=== PATIENT | female | born 2000 | race Caucasian/White ===

== ENCOUNTER 2021-09-03 09:00 | Emergency (ER) | payer OTHER ==
[~2021-09-03] VITALS: Ht 154.9 cm; Wt 94.8 kg
[2021-09-03 09:03] VITALS: BP 136/78
--- NOTE | 2021-09-03 09:11 | NUR ---
PT AMBULATED TO ER BED 9 WITH A STEADY GAIT.
[2021-09-03] MEDS ORDERED: KETOROLAC 30 MG/ML VIAL IM ONE (09:20)
[2021-09-03] MEDS ORDERED: CYCLOBENZAPRINE 10 MG TAB PO ONE (09:20)
[2021-09-03] MEDS ORDERED: CYCL-711 PO ×2 (10:14→11:18)
[2021-09-03] MEDS ORDERED: NITR100C7 PO ×2 (10:14→11:18)
[2021-09-03] MEDS ORDERED: CRUSHER, PILL MC ONE (10:14)
[2021-09-03] MEDS ORDERED: LID5T TP ×2 (10:14→11:18)
[2021-09-03] MEDS ORDERED: DICL100G5 TP ×2 (10:15→11:18)
[2021-09-03] MEDS ORDERED: IBUP-2213 PO ×2 (10:15→11:18)
--- NOTE | 2021-09-03 10:55 | NUR ---
Patient discharged with v/s stable. Written and verbal after care instructions given and explained. Patient alert, oriented and verbalized understanding of instructions. Ambulatory with steady gait. All questions addressed prior to discharge. ID band removed. Patient advised to follow up with PMD. Rx of flexeril, ibuprofen, lidocaine patch, doclofenac sodium, and macrobid given. Patient educated on indication of medication including possible reaction and side effects. Opportunity to ask questions provided and answered.
== END 2021-09-03 10:55 | disposition home or self-care (01) ==
LOC: MED 09:00
DX: S39.012A Strain of muscle, fascia and tendon of lower back, initial encounter (principal); N39.0 Urinary tract infection, site not specified; X58.XXXA Exposure to other specified factors, initial encounter; Y93.89 Activity, other specified; Y92.89 Other specified places as the place of occurrence of the external cause; Y99.8 Other external cause status
CPT/HCPCS: 81002; 81025; 96372; 99283; J1885

== ENCOUNTER 2023-01-03 06:38 | Emergency (ER) | payer OTHER ==
[~2023-01-03] VITALS: Ht 154.9 cm; Wt 92.5 kg
[~2023-01-03 06:38] MED LIST: CYCL-711 PO; DICL100G5 TP; IBUP-2213 PO; LID5T TP; NITR100C7 PO
[2023-01-03 06:40] VITALS: BP 129/82; PULSE 89; RESP 19; TEMP 97.2; O2SAT 100
[2023-01-03 07:45] VITALS: O2SAT 89
[2023-01-03] MEDS: BUPIVACAINE-MPF 0.5% 30 ML VIAL INJ ONE ×2 (08:16→08:18)
[2023-01-03] MEDS ORDERED: IBUP-2213 PO (08:23)
[2023-01-03 08:34] VITALS: BP 129/82; PULSE 89; RESP 19; TEMP 97.2; O2SAT 99
== END 2023-01-03 08:34 | disposition home or self-care (01) ==
LOC: MED 06:38
DX: K08.89 Other specified disorders of teeth and supporting structures (principal); Z79.899 Other long term (current) drug therapy
CPT/HCPCS: 99282; J3490

== ENCOUNTER 2023-08-14 17:37 | Emergency (ER) | payer OTHER ==
[~2023-08-14] VITALS: Ht 154.9 cm; Wt 91.2 kg
[~2023-08-14 17:37] MED LIST changes: +DICL100G32 TP; -DICL100G5 TP
[2023-08-14 17:42] VITALS: BP 106/62; PULSE 118; RESP 19; TEMP 98.1; O2SAT 91
[2023-08-14 18:45] VITALS: O2SAT 91
[2023-08-14] MEDS ORDERED: PRED20TA5 PO (19:01)
[2023-08-14] MEDS ORDERED: IBUP-2213 PO (19:01)
[2023-08-14] MEDS ORDERED: ALBU0.0912 INH (19:01)
== END 2023-08-14 19:05 | disposition home or self-care (01) ==
LOC: MED 17:37
DX: R07.89 Other chest pain (principal); R11.2 Nausea with vomiting, unspecified; J45.909 Unspecified asthma, uncomplicated; F12.90 Cannabis use, unspecified, uncomplicated; Z79.899 Other long term (current) drug therapy
CPT/HCPCS: 71045; 99283

== ENCOUNTER 2023-11-16 23:10 | Emergency (ER) | payer OTHER ==
[~2023-11-16] VITALS: Ht 154.9 cm; Wt 86.2 kg
[~2023-11-16 23:10] MED LIST changes: +ALBU0.0912 INH; +PRED20TA5 PO
[2023-11-16 23:15] VITALS: BP 112/63; PULSE 86; RESP 19; TEMP 97.7; O2SAT 99
[2023-11-17] MEDS ORDERED: NAPR-337 PO (01:29)
[2023-11-17] MEDS: IBUPROFEN 600 MG TAB PO ONE (01:33)
== END 2023-11-17 01:35 | disposition home or self-care (01) ==
LOC: MED 23:10
DX: S83.91XA Sprain of unspecified site of right knee, initial encounter (principal); J45.909 Unspecified asthma, uncomplicated; Z79.1 Long term (current) use of non-steroidal anti-inflammatories (NSAID); Z79.899 Other long term (current) drug therapy; V09.9XXA Pedestrian injured in unspecified transport accident, initial encounter; Y93.89 Activity, other specified; Y92.89 Other specified places as the place of occurrence of the external cause; Y99.8 Other external cause status
CPT/HCPCS: 73562; 99283

== ENCOUNTER 2023-12-16 12:18 | Emergency (ER) | payer OTHER ==
[~2023-12-16] VITALS: Ht 154.9 cm; Wt 90.7 kg
[~2023-12-16 12:18] MED LIST changes: +NAPR-337 PO
[2023-12-16 12:58] VITALS: BP 131/83; PULSE 78; RESP 16; TEMP 98.1; O2SAT 100
[2023-12-16] MEDS ORDERED: IBUP-2213 PO (14:26)
[2023-12-16] MEDS: IBUPROFEN 600 MG TAB PO ONE (14:31)
== END 2023-12-16 14:00 | disposition left against medical advice (07) ==
LOC: MED 12:18
DX: S52.125A Nondisplaced fracture of head of left radius, initial encounter for closed fracture (principal); S00.83XA Contusion of other part of head, initial encounter; M79.632 Pain in left forearm; M25.552 Pain in left hip; J45.909 Unspecified asthma, uncomplicated; Z79.899 Other long term (current) drug therapy; V29.91XA Electric (assisted) bicycle rider (driver) (passenger) injured in unspecified traffic accident, initial encounter; Y93.89 Activity, other specified; Y92.410 Unspecified street and highway as the place of occurrence of the external cause; Y99.8 Other external cause status
CPT/HCPCS: 73060; 73080; 73090; 99284